=== PATIENT | male | born 2000 | race Hispanic/Latino ===

== ENCOUNTER 2023-01-29 05:43 | Emergency (ER) | payer OTHER ==
[2023-01-29] MEDS ORDERED: Lidocaine 1% w/Epinephrine 1:100K 20 ML VIAL ONE (06:24)
== END 2023-01-29 07:39 ==
LOC: NAV ERS 05:43
DX: S06.0XAA Concussion with loss of consciousness status unknown, initial encounter (principal); S01.112A Laceration without foreign body of left eyelid and periocular area, initial encounter; F17.210 Nicotine dependence, cigarettes, uncomplicated; W22.8XXA Striking against or struck by other objects, initial encounter
CPT/HCPCS: 12013; 70450; 72125